=== PATIENT | male | born 1985 | race Caucasian/White ===

== ENCOUNTER 2021-04-04 04:26 | Emergency (ER) | payer MEDICAID, OTHER ==
[~2021-04-04] VITALS: Ht 175.3 cm; Wt 71.0 kg
[2021-04-04 04:36] VITALS: BP 116/77
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
[2021-04-04] MEDS ORDERED: HYDROcodone/APAP 5/325MG 1 TAB TABLET ONE (04:59)
[2021-04-04] MEDS ORDERED: HYDROcodone/APAP 5/325MG 1 TAB TABLET PO ONE (05:30)
== END 2021-04-04 05:03 | disposition home or self-care (01) ==
LOC: ER 04:26
DX: S60.552A Superficial foreign body of left hand, initial encounter (principal); Z88.0 Allergy status to penicillin; W34.010A Accidental discharge of airgun, initial encounter; Y93.89 Activity, other specified; Y92.89 Other specified places as the place of occurrence of the external cause; Y99.8 Other external cause status
CPT/HCPCS: 99283